=== PATIENT | female | born 1960 | race Hispanic/Latino ===

== ENCOUNTER → 2025-07-21 | Outpatient (CLI) | payer OTHER ==
--- NOTE | 2025-07-22 08:33 | HMCIMG ---
EXAM: CT Cardiac calcium scoring. CLINICAL HISTORY: HEARTSAVER (Hx) / Ca Score TECHNIQUE: Thin collimated axial CT cardiac images were obtained. A CT scan is done according to ALARA (As Low As Reasonably Achievable). CONTRAST: None. COMPARISON: None provided. FINDINGS: Calcium Score: VESSEL Lesions Calcium score(Agatson) LM 0 0 LAD 0 0 LCX 0 0 RCA 0 0 Total 0 0 IMPRESSION: The total calcium score is 0, which suggests no identifiable calcification and a coronary age of less than 35 years. The percentile score is 0. Mild cardiomegaly. The main pulmonary trunk is prominent up to 3.5 cm. Moderate calcific changes in the mitral valve. Minimal calcific changes in the aortic annulus. Mild calcific atherosclerotic changes in the aorta. /[place]
== END | disposition home or self-care (01) ==
LOC: RAH 12:30
PROVIDERS: ATTEND Family Medicine
DX: Z13.6 Encounter for screening for cardiovascular disorders (principal); I08.0 Rheumatic disorders of both mitral and aortic valves; I51.7 Cardiomegaly
CPT/HCPCS: 75571

== ENCOUNTER → 2025-08-01 | Outpatient (CLI) | payer MEDICARE ==
--- NOTE | 2025-08-10 11:26 | HMCIMG ---
Right BREAST ULTRASOUND: CLINICAL HISTORY: Mastodynia Finding: Real-time examination of the [right/left] breast demonstrates mildly heterogeneous echotexture throughout the breast without evidence of focal solid or cystic masses. IMPRESSION: Mildly dense breast with no mass or cyst seen. FINAL ASSESSMENT: ACR: BI-RAD - 1. Negative ULTRASOUND
== END | disposition home or self-care (01) ==
LOC: RAH 08:33
PROVIDERS: ATTEND Obstetrics & Gynecology
DX: N64.4 Mastodynia (principal); R92.333 Mammographic heterogeneous density, bilateral breasts
CPT/HCPCS: 76641